=== PATIENT | female | born 1990 | race Caucasian/White ===

== ENCOUNTER → 2018-08-24 12:28 | Outpatient (CLI) | payer OTHER ==
[2012-07-09 08:53] VITALS: BMI 32.0
== END | disposition home or self-care (01) ==
LOC: D.US 08-07 10:00
DX: N63.21 Unspecified lump in the left breast, upper outer quadrant (principal)

== ENCOUNTER 2018-10-29 09:55 | Day surgery (SDC) | payer OTHER ==
[2018-10-26 11:06] LABS: BASOPHILS 0.3 % (0-2); EOSINOPHILS 0.6 % (0-7); HEMATOCRIT 39.9 % (36.0-48.0); HEMOGLOBIN 13.7 g/dL (12-16); IMMATURE GRANULOCYTES 0.2 % (0-5); LYMPHOCYTES 30.3 % (15-50); MCH 29.6 pg (26.0-34.0); MCHC 34.3 g/dL (31.0-37.0); MCV 86.2 fL (80.0-100.0); MEAN PLATELET VOLUME 10.7 fL (7.4-10.4); MONOCYTES 6.5 % (2-11); NEUTROPHILS 62.1 % (40-80); PLATELET COUNT 220 10x3/uL (130-400); RBC 4.63 10x6/uL (4.00-5.40); RDW 13.1 % (11.5-14.5); WBC 10.4 10x3/uL (4.8-10.8)
[~2018-10-29] VITALS: Ht 165.1 cm; Wt 111.1 kg
[~2018-10-29 09:55] MED LIST: CYCLOBENZAPRINE10 MG PO; IBUPROFEN800 MG PO; OMEPRAZOLE40 MG PO
[2018-10-29 10:29] VITALS: BP 110/71; Ht 165.1 cm; Wt 111.1 kg
[2018-10-29 11:17] LABS: HCG URINE NEGATIVE (NEGATIVE)
--- NOTE | 2018-10-30 08:31 | OP ---
PATIENT NAME: MANUEL MACARIO MEDICAL RECORD: [id number] :89 LOCATION:D.OPS ADMISSION DATE: SURGEON: MANISHA SPRINGER MD DATE OF OPERATION: 10/29/2018 PREOPERATIVE DIAGNOSIS: Pelvic pain. POSTOPERATIVE DIAGNOSES: 1. Pelvic pain. 2. Pelvic adhesive disease. 3. Suspect adenomyosis. PROCEDURE PERFORMED: 1. Diagnostic laparoscopy. 2. Lysis of adhesions. SURGEON: Manisha Springer MD COMPOUND FILLER: Charlie. ANESTHESIOLOGIST: Dr. Valencia. ANESTHESIA: General. FINDINGS: Dense adhesion of the omentum to the midline. There are unremarkable appearing ovaries and tubes. Some bloody fluid and blood-tinged clear fluid in the cul-de-sac. Uterus is enlarged and boggy. What was visualized of the upper abdominal anatomy was unremarkable. SPECIMENS REMOVED: None. SPECIMEN DISPOSITION: Not applicable. ESTIMATED BLOOD LOSS: Minimal. FLUIDS: 500 mL of lactated Ringer's. URINE OUTPUT: Quantity sufficient void prior to this procedure. COMPLICATIONS: None. DRAINS: None. INDICATIONS: The patient is a 28-year-old female with painful periods and dyspareunia. The patient was consented for diagnostic laparoscopy and any indicated procedure. DESCRIPTION OF PROCEDURE: After informed consent was assured, the patient was taken to the operating room where anesthetic was obtained. The patient was placed on the table in the supine position and prepped and draped in the usual sterile fashion. An incision was made at the umbilicus to accommodate a 5-mm trocar, which was inserted without difficulty and pneumoperitoneum developed. An accessory trocar was placed 2 fingerbreadths above the symphysis in the midline. Through this port with the patient in Trendelenburg position, the bowel swept free of the pelvis with the above findings. A monopolar hook was OPERATIVE REPORT [id number] MANUEL MACARIO inserted and with a setting of 20 roland, the omental adhesions were taken down in the midline. After these adhesions were taken down, the operative field was inspected and found to be hemostatic. Inspection of the pelvis does not reveal evidence of endometriosis in the cul-de-sac, ovarian fossae, or surface of the uterus. The ovaries were free of obvious endometrial implants. The accessory trocars removed as the pneumoperitoneum was being released. Primary trocars were removed after release of the pneumoperitoneum. The skin was reapproximated with subcuticular stitch. Dermabond was applied. Sponge, lap, and needle counts correct times 2. The patient was awakened and went to the recovery room in stable condition. TRANSINT:[id number] Voice Confirmation ID: [id number] DOCUMENT ID: [id number] MANISHA SPRINGER MD at 0831 CC: [id number] DICTATION DATE: 10/29/18 1417 [facility]IL[facility] WORKER: 10/29/18 1551 [facility] [place] 10/29/18 [id number] [place] [address]
== END 2018-10-29 16:53 | disposition home or self-care (01) ==
LOC: D.OPS 09:55
PROVIDERS: ATTEND Obstetrics & Gynecology
DX: R10.2 Pelvic and perineal pain (principal); N73.6 Female pelvic peritoneal adhesions (postinfective); N85.2 Hypertrophy of uterus; Z01.812 Encounter for preprocedural laboratory examination

== ENCOUNTER 2019-01-21 05:35 | Day surgery (SDC) | payer OTHER ==
[2019-01-18 10:15] LABS: BASOPHILS 0.3 % (0-2); EOSINOPHILS 0.9 % (0-7); HEMATOCRIT 38.7 % (36.0-48.0); HEMOGLOBIN 13.6 g/dL (12-16); IMMATURE GRANULOCYTES 0.3 % (0-5); LYMPHOCYTES 31.3 % (15-50); MCH 30.2 pg (26.0-34.0); MCHC 35.1 g/dL (31.0-37.0); MEAN PLATELET VOLUME 10.6 fL (7.4-10.4); MONOCYTES 6.5 % (2-11); NEUTROPHILS 60.7 % (40-80); PLATELET COUNT 230 10x3/uL (130-400); WBC 9.9 10x3/uL (4.8-10.8)
[2019-01-18 10:34] LABS: CALC OSMOLALITY 278 mosm/kg (275-300); CALCIUM 8.9 mg/dL (8.5-10.1); CARBON DIOXIDE 22.7 mmol/L (21.0-32.0); CHLORIDE - SERUM 104 mmol/L (98-107); CREATININE - SERUM 0.7 mg/dL (0.6-1.3); GLUCOSE 137 mg/dL (74-106); POTASSIUM - SERUM 3.8 mmol/L (3.5-5.1); SODIUM 139 mmol/L (136-145); UREA NITROGEN 10 mg/dL (7-18); eGFR NON AFRICAN AMERICAN > 90 mL/min (90-120)
[2019-01-21] VITALS (10 sets, daily range): BP systolic 113–141; BP diastolic 55–75; Ht 165.1 cm; Wt 112.9 kg
[~2019-01-21] VITALS: Ht 165.1 cm; Wt 112.9 kg
[~2019-01-21 05:35] MED LIST changes: +KLONOPIN0.5 MG PO; +LATUDA40 MG PO
[2019-01-21 06:26] LABS: HCG URINE NEGATIVE (NEGATIVE)
--- NOTE | 2019-01-21 10:46 | NUR ---
PT RCVD FROM STEVEN ARREOLA IN RECOVERY VIA BED TO ROOM 1278. PT DROWSY BUT ALERTS TO VOICE AND FOLLOWS COMMANDS, ORIENTED x3. PT TRANSFERS SELF FROM STRETCHER TO BED. PT RATES PAIN 8/10 AFTER TRANSFERRING SELF. PT ON 3L OXYGEN VIA NC, 02 SATS APPROX 95%. 3 ABD LAP INCISIONS ARE C/D WITH DERMABOND INTACT. RIGHT HAND IV C/D/I, SALINE LOCKED. LEFT HAND PIV INFUSING IV FLUIDS ORDERED FROM RECOVERY, C/D/I. MARC CATH DRAINING CLEAR YELLOW URINE TO BEDSIDE DRAINAGE. STAT LOCK PLACED TO PT'S INNER LEFT THIGH AND MARC TUBING SECURED. PERIPAD PLACED TO PERINEUM, NO VAGINAL BLEEDING NOTED. SCD'S ON LE BILAT. PT DENIES NAUSEA, PROVIDED WITH ICE WATER AND INSTRUCTED TO SIP SLOWLY. ICE PACK PLACED TO ABD AND SURGERY PILLOW PROVIDED. SRUx2, CL IN REACH. SIG OTHER AT BEDSIDE. WILL ADMIN PRN PAIN MED ORDERED.
--- NOTE | 2019-01-21 11:20 | NUR ---
THIS RN TO ROOM FOR PT CHECK. PT RESTING QUIETLY WITH EYES CLOSED, RESP EVEN AND UNLABORED. 100ML CLEAR YELLOW URINE EMPTIED FROM UROMETER. PT LEFT UNDISTURBED. SRUx2, CL IN REACH. SIG OTHER AT BEDSIDE.
--- NOTE | 2019-01-21 11:40 | NUR ---
THIS RN TO ROOM FOR PT CHECK. PT RESTING IN BED, SUPINE WITH HOB 30 DEGREES. RESTING WITH EYES CLOSED, RESP EVEN AND UNLABORED. PT ALERTS TO VOICE. PT STATES PAIN IS GETTING BETTER, RATES PAIN "A 5 OR 6" AT THIS TIME. PERIPAD CHECKED AND NOTED TO BE C/D. PT DENIES NEEDS AT THIS TIME. CLOSES EYES AND RESTS. SIG OTHER AT BEDSIDE. SRUx2, CL IN REACH.
--- NOTE | 2019-01-21 12:30 | NUR ---
THIS RN TO ROOM FOR IV PUMP BEEPING INFUSION IS COMPLETE. IV SALINE LOCKED. MARC CATH REMOVED PER ORDER, 100ML CLEAR YELLOW URINE NOTED IN UROMETER. PERIDPAD IS C/D. PT OXYGEN TITRATED DOWN UNTIL OFF, O2 SATS REMAIN AT 96% WITH OXYGEN OFF. PT INSTUCTED ON COUGHING AND DEEP BREATHING WITH SURGERY PILLOW TO SUPPORT ABD. PT DOES SO INDEPENDENTLY. PT C/O PAIN RATED 7/10 AT THIS TIME. PRN PAIN MED NOT YET AVAILABLE PER ORDERED SCHEDULE. WILL NOTIFY
--- NOTE | 2019-01-21 12:41 | NUR ---
DR SPRINGER ON UNIT, REPORT GIVEN REGARDING PT'S C/O PAIN. ORDER RECIEVED TO ADMIN 1G TYLENOL POx1 NOW, ADMIN SCHEDULED 1500 GABAPENTIN NOW, AND ADMIN IR OXYCODONE ORDERED PRN NOW WELL. IF UNABLE TO CONTROL PAIN WITH THOSE MEDS, CALL FOR FURTHER ORDERS.
--- NOTE | 2019-01-21 12:57 | NUR ---
PT ADMIN PRN PAIN MEDS AT THIS TIME ALONG WITH FRESH ICE WATER. PT SITTING UP IN BED VISITING WITH SIG OTHER. WILL CONT TO MONITOR. SRxu2, CL IN REACH.
--- NOTE | 2019-01-21 13:48 | NUR ---
THIS RN TO ROOM FOR PAIN REASSESSMENT. PT RATES PAIN 4/10, DENIES NAUSEA. TOLERATING PO FLUIDS AND CRACKERS. PT DENIES NEEDING TO VOID AT THIS TIME. PT INSTRUCTED TO CALL WHEN READY TO GET UP TO BR FOR ASSIST. UNDERSTANDING VERALIZED. O2 SATS NOTED TO BE LOWER, SIG OTHER STATES THEY ALWAYS DROP WHEN PT IS SLEEPING. UNDERLYING SLEEP APNEA DISCUSSED, PT STATES YES SHE HAS BEEN TOLD THAT BEFORE BUT UNDIAGNOSED OFFICIALLY. PT PLACED ON 1L OXYGEN VIA NC AT THIS TIME. O2 SAT RISES TO 94%. PT ENCOURAGED. SRUx2, CL IN REACH. WILL CONT TO MONITOR.
--- NOTE | 2019-01-21 15:02 | NUR ---
PT NOTIFIES STAFF THAT SHE HAS BEEN UP TO VOID. THIS RN TO ROOM. PT STATES SHE GOT UP TO BR WITH HELP FROM SIG OTHER, HAD NO DIZZINESS, AND AMBULATED FINE. PT STATES SHE WAS UNABLE TO VOID, BUT FEELS THE URGE. STATES SHE IS DRINKING MORE WATER AND WILL TRY AGAIN LATER. DENIES NEEDS AT THIS TIME. SRUx2, CL IN REACH. WILL CONT TO MONITOR.
--- NOTE | 2019-01-21 15:03 | NUR ---
OXYGEN NOTED TO BE OFF PER PT, O2 SATS STAYING AT 95-96% ON ROOM AIR. SCD'S OF PER PT FOR OOB ACTIVITY.
--- NOTE | 2019-01-21 16:41 | NUR ---
THIS RN TO ROOM FOR PT CHECK. PT STATES SHE VOIDED, AND HAD A SMALL AMOUNT OF BLEEDING. URINE DRIP ELECTRICIAN THIRD NOTED TO HAVE APPROX 200ML DARK YELLOW URINE. PT ENCOURAGED TO CONTINUE DRINKING MORE FLUIDS. SCANT SMEAR OF RED BLOOD NOTED ON PERIPAD. PT REASSURED AND INSTRUCTED TO REPORT ANY CONTINOUS FLOW OF VAGINAL BLEEDING OR IF IT INCREASES FROM SCANT SMEARS/SPOTTING. UNDERSTANDING VERBALIZED. PT STATES SHE FEELS BETTER AND WOULD LIKE TO GO HOME NOW DISCUSSED WITH DR SPRINGER. WILL PROCEED WITH DISCARGE PER VERBAL ORDER WITH PARAMETERS.
--- NOTE | 2019-01-21 16:50 | NUR ---
INCISIONS CHECKED AND NOTED TO BE C/D/I. NO VAGINAL BLEEDING SEEN. PT UP TO DRESS FOR D/C TO HOME.
[2019-01-21] MEDS ORDERED: NEURONTIN 300300 MG PO (16:52)
[2019-01-21] MEDS ORDERED: MOBIC7.5 MG PO (16:53)
[2019-01-21] MEDS ORDERED: OXYCODONE HCL5 M1 PO (16:53)
--- NOTE | 2019-01-21 17:15 | NUR ---
PT GIVEN DISCHARGE INSTRUCTIONS AND PRESCRIPTIONS PROVIDED BY DR SPRINGER FOR PAIN CONTROL POST D/C TO HOME. PT VERBALIZES UNDERSTANDING AND DENIES QUESTIONS. PT SIGNS CHART COPIES OF INSTRUCTIONS. LEFT AND RIGHT HAND PIV'S REMOVED WITHOUT INCIDENT. CATHS INTACT. PRESSURE HELD AND BANDAIDS APPLIED.
--- NOTE | 2019-01-21 17:20 | NUR ---
PT TAKEN OFF UNIT VIA W/C TO PRIVATE VEHICLE FOR D/C TO HOME. SIG OTHER TO DRIVE PT HOME.
--- NOTE | 2019-01-22 18:01 | OP ---
PATIENT NAME: MANUEL MACARIO MEDICAL RECORD: [id number] :89 LOCATION:D.[facility] ADMISSION DATE: SURGEON: EDI SPRINGER MD DATE OF OPERATION: 01/21/2019 PREOPERATIVE DIAGNOSES: 1. Dysfunctional uterine bleeding. 2. Dysmenorrhea. 3. Pelvic pain. POSTOPERATIVE DIAGNOSES: 1. Dysfunctional uterine bleeding. 2. Dysmenorrhea. 3. Pelvic pain. PROCEDURE: 1. Diagnostic laparoscopy. 2. Bilateral salpingectomy. 3. Total laparoscopic hysterectomy. SURGEON: Edi Springer MD SET UP MECHANIC HEADING MACHINES: Anya Burton. ANESTHESIOLOGIST: Dr. Valencia ANESTHETIC: General anesthetic with endotracheal intubation. FINDINGS: Uterus was enlarged and boggy. The tubes were unremarkable. Both ovaries were unremarkable. What was visualized of the abdominal anatomy and vaginal anatomy was also unremarkable. SPECIMEN REMOVED: Tubes bilaterally and uterus with cervix. SPECIMEN DISPOSITION: Pathology. ESTIMATED BLOOD LOSS: Less than or equal to 100 cc. FLUIDS: 1700 cc of lactated Ringer's. URINE OUTPUT: 100 cc of clear urine. COMPLICATIONS: None. DRAINS: Romero to gravity discontinued this 2 hours postoperative. INDICATIONS: The patient is a 29-year-old female with a history of dysmenorrhea and menorrhagia. The patient desires definitive therapy. The patient had been tried on conservative therapy without satisfactory results. Risks, benefits as well as limitations have been discussed. DESCRIPTION OF PROCEDURE: After informed consent was assured, the patient was taken to the operating room where anesthetic was obtained without difficulty. The patient was prepped and draped after being [facility]. A uterine manipulator was placed and attention was directed to the abdomen where OPERATIVE REPORT [id number] MANUEL MACARIO an incision was made at the umbilicus to accommodate a 5-mm trocar. This trocar was inserted. Pneumoperitoneum was developed and the patient was placed in Trendelenburg position. Accessory trocars were placed in the right and left lower quadrants. The right lower quadrant port was a 12-mm port and the left lower quadrant port was 5 mm. Starting from the right, the dissection of the tube from its connection to the adnexa was begun. This dissection was carried underneath the tube across the uteroovarian and round ligaments and anterior leaf of the broad ligament was opened and the bladder flap developed to the midline. Posteriorly, the broad ligament was taken down and the vessels of the right side compressed, coagulated, and at the level at the level of the manipulator cup. Attention was directed to the left side where this was performed in similar fashion. Again, the dissection was carried out underneath the left tube across the uteroovarian and round ligaments. The anterior leaf of the broad ligament was opened and the bladder flap now fully developed. Posteriorly, the connective tissue surrounding the left vascular bundle at the level of the cup was dissected free. The bundle was now compressed, coagulated, and . Dissection began of the uterus from its connection to the vaginal cuff. This begin at the 6th and concludes at the 12 and then is carried out again from the 12th to the 6th on the right side. Once the uterus was freed, it was pulled into the vaginal vault where pneumoperitoneum was established and inspection reveals adequate hemostasis of the operative field. Uterus was now removed. The legs positioned for the close. Interrupted Vicryl stitches were used to approximate the vaginal cuff. Once this had been performed, pneumoperitoneum was reestablished and some bleeding was noted from the right peritoneal edge of the vaginal cuff. Porsha was placed directly over this with good result. Pneumoperitoneum was released as the accessory trocars were removed. All sites closed with a subcuticular stitch. Sponge, lap, needle counts were correct times 2. TRANSINT:[id number] Voice Confirmation ID: [id number] DOCUMENT ID: [id number] EDI SPRINGER MD at 1801 CC: [id number] DICTATION DATE: 01/21/19 0941 MEDICAID BILLER: 01/21/19 1118 [facility] 01/21/19 [id number] [place] [address]
== END 2019-01-21 17:20 | disposition home or self-care (01) ==
LOC: D.OPS 05:35 → D.PAN 07:30 → D.LD 10:25 → D.OPS 10:45
PROVIDERS: ATTEND Obstetrics & Gynecology
DX: N93.8 Other specified abnormal uterine and vaginal bleeding (principal); N94.6 Dysmenorrhea, unspecified; N85.2 Hypertrophy of uterus; N80.0 Endometriosis of uterus; Z01.812 Encounter for preprocedural laboratory examination